=== PATIENT | male | born 1995 | race Caucasian/White ===

== ENCOUNTER 2019-12-21 04:41 | Emergency (ER) | payer SELFPAY ==
[~2019-12-21] VITALS: Ht 175.3 cm; Wt 63.5 kg
[2019-12-21 04:41] VITALS: BP_SYST 118
[2019-12-21] MEDS ORDERED: KETOROLAC TROMETHAMINE 30 MG VIAL IM ONE (05:00)
[2019-12-21 05:22] VITALS: BP_SYST 118
== END 2019-12-21 05:15 ==
LOC: SED 04:41
DX: R10.9 Unspecified abdominal pain (principal)
CPT/HCPCS: 96372; 99283; J1885